=== PATIENT | female | born 1975 | race Caucasian/White ===

== ENCOUNTER 2016-07-08 13:27 | Emergency (ER) | payer BC ==
[~2016-07-08] VITALS: Ht 170.2 cm; Wt 70.5 kg
[2016-07-08] MEDS ORDERED: ALBUTEROL 0.083% NEB SOLUTION 2.5 MG/3 ML VIAL INH ONE (14:20)
[2016-07-08] MEDS ORDERED: predniSONE 20 MG (DELTASONE) TABLET PO ONE (14:20)
[2016-07-08 15:23] VITALS: BP 150/99
== END 2016-07-08 15:24 | disposition home or self-care (01) ==
LOC: ED 13:28
DX: J45.901 Unspecified asthma with (acute) exacerbation (principal); J06.9 Acute upper respiratory infection, unspecified
CPT/HCPCS: 94640; 94664; 99282

== ENCOUNTER → 2016-07-27 | Outpatient (CLI) | payer BC | LOC: RAD 07:54 | PROVIDERS: ATTEND Family Medicine | DX: Z12.31 Encounter for screening mammogram for malignant neoplasm of breast (principal) ==

== ENCOUNTER → 2016-10-02 | Outpatient (CLI) | payer BC ==
[~2016-10-02] MED LIST: ALBU8.5H2; ETHI1TAB16; LEVO125T6; LIOT5TAB3; LISI2.5T; PRED20TA PO
[2016-10-02 11:13] LABS: BASOPHILS % (AUTO) 1 % (0-2); EOSINOPHILS # (AUTO) 0.3 10^3uL; EOSINOPHILS % (AUTO) 4 % (0-4); LYMPHOCYTES # (AUTO) 1.5 X10^3; MEAN CORPUSCULAR HEMOGLOBIN 27.9 PG (26.0-34.0); MEAN CORPUSCULAR HGB CONC 34.1 g/dL (31.0-37.0); MEAN CORPUSCULAR VOLUME 82 FL (80-100); MEAN PLATELET VOLUME 10.8 FL (6.0-9.5); MONOCYTES # (AUTO) 0.5 X10^3; MONOCYTES % (AUTO) 6 % (3-11); NEUTROPHILS # (AUTO) 5.2 X10^3; NEUTROPHILS % (AUTO) 69 % (51-67); PLATELET COUNT 297 10^3uL (150-450); WHITE BLOOD COUNT 7.48 10^3uL (4.0-11.0)
[2016-10-02 12:02] LABS: ERYTHROCYTE SEDIMENTATION RT* 28 mm/hr (0-21)
== END ==
LOC: LAB 11:01
PROVIDERS: ATTEND Physician Assistant
DX: M79.1 Myalgia (principal)
CPT/HCPCS: 36415; 82550; 85025; 85652

== ENCOUNTER → 2016-10-02 | Outpatient (CLI) | payer BC ==
[2016-10-02 13:52] VITALS: BP 138/92
--- NOTE | 2016-10-02 13:52 | Urgent Care T Sheet Gen (E) ---
Intake General Temperature (Fahrenheit): 98.8 Pulse: 90 Blood Pressure Systolic: 138 Blood Pressure Diastolic: 92 Respirations: 18 SPO2: 98 Description of Symptoms Patient presents with generalized muscle and joint pain since . 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 States she was more active this past week than usual. Notes pain, jose in the hands, shoulders, knees and ankles. States that similar symptoms happened around this same time last year and Dr Sharif performed a complete workup which was unremarkable. Patient states they believed the symptoms were due to an adverse reaction to Breo. Patient has been taking ibuprofen as needed for pain. 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 Also just recently saw her dipper and baker and her thyroid markers were good. Daily meds include a BP medication, thyroid medication and OCP. No changes to her daily meds, has been on them for a while. History of Present Illness Allergies: Coded Allergies: No Known Drug Allergies (Unverified , 07/08/16) Home Meds Active Scripts Prednisone 20 Mg [id number] Mg PO DAILY #11 TAB Take 40mg po daily x 4 days then 20mg po daily x 3 days Prov:KATHY FAM 10/02/16 Reported Medications Ethinyl Estradiol/Drospirenone (Gianvi 3 mg-0.02 mg Tablet)1 Each Tablet3 Daily #84 07/08/16 Liothyronine Sodium 5 Mcg Tablet5 Daily #30 07/08/16 Levothyroxine Sodium 125 Mcg [id number] Daily #30 07/08/16 Albuterol Sulfate (Proair HFA)8.5 Gm [id number].[id number] As Needed #9 07/08/16 Lisinopril 2.5 Mg Tablet2.5 Daily #90 07/08/16 Respiratory Constitutional Symptoms: No syptoms reported EENTM: No symptoms reported Respiratory: No symptoms reported Cardiovascular: No symptoms reported Gastrointestinal/Abdominal: No symptoms reported Musculoskeletal: Back pain Joint pain Joint swelling Muscle pain Neck pain All Other Systems Reviewed Remaining Systems: All other systems reviewed with negative findings Past Xzmlnvh-Bjagms-Xuhcbp Hx Patient's Social History Alcohol Use: Occasionally Uses Smoking Status: Never smoker Surgeries/Hospitalizations Hospitalization/Surgery Hx: 2 , hernia umbilical, left knee scope Respiratory Respiratory History: None Cardiovascular Cardiovascular History: Hypertension, None Gastrointestinal GI/Endocrine History: Thyroid disorder Diabetes Diabetes: No HEENT Impaired Vision: None Hearing Impaired: None Psychosocial Behavior Disorders: None Physical Exam Physical Exam General Appearance: WD/WN No apparent distress Respiratory Exam: Lungs clear Normal breath sounds Cardiovascular Exam: Regular rate, rhythm Skin Exam: Normal color No rashes Extremity Exam: Full range of motion Tenderness Joint swelling Neurologic/Psychiatric Exam: No motor deficits No sensory deficits Comment Examination of the UE's reveals tenderness over the deltoids. Active shoulder movement causes muscular pain however passive shoulder movement is not painful. No subluxation in either shoulder. Full non-painful passive ROM. Full active ROM however painful. Elbows are ok. Hands are swollen. Full ROM in fingers and wrist however swelling limits. No triceps, biceps, bicipital tendon , forearm muscular pain. Normal strength and sensation in the UE's. Upper back is mildly tender over upper trapezii. No scapular pain, spinal pain , paraspinal pain, SI joint or piriformis pain. Hips have full, active non- painful ROM. Hips are not tender to palpation. Examination of the LE's reveals tenderness over lateral knees. No quad tenderness, no knee joint tenderness. No pedal edema. Normal strength and sensation in the LE's. Normal gait. No obvious swelling to the joints of the LE's. Progress/Orders Progress Note: Progress Note CBC was essentially unremarkable aside from slightly elevated mean platelet volume and slightly elevated %neutrophils. Erythrocyte sed rate is elevated at 28 (normal range is 0-21) Total creatine kinase is normal Departure Urgent Care Impression Impression: Primary Impression: Muscle pain Additional Impression: Elevated erythrocyte sedimentation rate Departure Disposition: 01 HOME OR SELF-CARE Condition: Stable Referrals: SAMUEL SHARIF MD (PCP) Additional Instructions: Patient states her similar episode last year was treated with Prednisone. Also states her workup last year, including RA, was normal. Her recent pulmonary and endocrinology lab results were also normal, per patient. While I believed her symptoms were most likely some sort of inflammatory response, told the patient that we need to rule out the more serious things before we just treat with Prednisone. She was concerned her insurance wouldn't cover since she just had lab work done. Told her I'm specifically looking at her platelets, Ck to rule out rhabdomyolysis, and her sed rate to confirm inflammatory response. Patient then agreed to lab. I believe the lab I ordered was warranted and should be covered by insurance. I have started her on a tapering dose of Prednisone to help with inflammation. No NSAIDs while on steroid May take Tylenol as needed for pain. F/U with Dr Sharif to recheck lab and make sure she is improving. I have faxed today's notes to her office. Return to UC as needed Patient understands DC instructions. All questions were answered. Greater than 40 minutes was spent evaluating the patient, ordering and interpreting lab, discussing treatment, etc. Scripts Prednisone 20 Mg [id number] Mg PO DAILY #11 TAB Take 40mg po daily x 4 days then 20mg po daily x 3 days Prov:KATHY FAM 10/02/16 End of report . KATHY FAM October 02, 2016 10:37
== END ==
LOC: MHUC 10:06
PROVIDERS: ATTEND Physician Assistant
DX: M79.1 Myalgia (principal); R70.0 Elevated erythrocyte sedimentation rate
CPT/HCPCS: 99214